=== PATIENT | female | born 1940 | race Two or more races ===

== ENCOUNTER 2017-09-30 18:59 | Inpatient (IN) | payer MEDICARE ==
[~2017-09-30] VITALS: Ht 157.5 cm; Wt 63.5 kg
[2017-09-30 20:00] VITALS: BP 94/62
[2017-09-30 20:21] LABS: BILIRUBIN, URINE 1+ (NEGATIVE); GLUCOSE, URINE (UA) NEGATIVE (NEGATIVE); KETONES,URINE 2+ (NEGATIVE); LEUKOCYTE ESTERASE ,URINE 3+ (NEGATIVE); NITRITE,URINE NEGATIVE (NEGATIVE); PH,URINE 5 (4.5-8.0); PROTEIN,URINE 2+ (NEGATIVE); UROBILINOGEN,URINE NORMAL MG/DL (0.0-1.0)
[2017-09-30 20:23] LABS: APPEARANCE,URINE SLIGHTLY CLOUDY; COLOR,URINE YELLOW
[2017-09-30 20:30] LABS: BASOPHILS % (AUTO) 0.7 % (0.0-2.0); HEMATOCRIT 42.1 % (37.0-47.0); HEMOGLOBIN 13.5 G/DL (12.0-16.0); LYMPHOCYTES % (AUTO) 21.5 % (20.0-45.0); MEAN CORPUSCULAR VOLUME 99 FL (80-99); MONOCYTES % (AUTO) 8.9 % (1.0-10.0); PLATELET COUNT 131 K/UL (150-450); RED BLOOD COUNT 4.24 M/UL (4.20-5.40); RED CELL DISTRIBUTION WIDTH 12.7 % (11.6-14.8); WHITE BLOOD COUNT 6.1 K/UL (4.8-10.8)
[2017-09-30 20:33] LABS: ANION GAP 10 mmol/L (5-15); BLOOD UREA NITROGEN 61 mg/dL (7-18); CALCIUM 8.2 MG/DL (8.5-10.1); CARBON DIOXIDE 25 MMOL/L (21-32); CHLORIDE 105 MMOL/L (98-107); CREATININE 1.9 MG/DL (0.55-1.30); POTASSIUM 4.4 MMOL/L (3.5-5.1); SODIUM 140 MMOL/L (136-145)
[2017-09-30 20:38] LABS: ALANINE AMINOTRANSFERASE 23 U/L (12-78); ALBUMIN 3.5 G/DL (3.4-5.0); ALBUMIN/GLOBULIN RATIO 0.9 (1.0-2.7); ALKALINE PHOSPHATASE 80 U/L (46-116); ASPARTATE AMINO TRANSFERASE 58 U/L (15-37); BILIRUBIN,TOTAL 0.3 MG/DL (0.2-1.0)
[2017-09-30] MEDS ORDERED: cefTRIAXone 1 GM in NS 55 ML IVPB ONE (21:00)
[2017-09-30 21:14] LABS: INR 0.9 (0.9-1.1)
[2017-09-30 22:00] VITALS: BP 101/65
--- NOTE | 2017-09-30 23:20 | Emergency Room Report ---
History of Present Illness General Chief Complaint: Generalized Weakness Source: Patient, EMS Present Illness HPI 77-year-old female resents ED for evaluation. Patient coming from home complaining of weakness bodyaches and chills times one week. Frequent urination. Afebrile in triage. States she has poor appetite. Denies chest pain or shortness of breath. Denies fevers or chills. No other aggravating relieving factors. Denies any other associated symptoms Allergies: Coded Allergies: No Known Allergies (Unverified , 09/30/17) Patient History Past Medical History: HTN Past Surgical History: pacemaker Pertinent Family History: none Social History: Denies: smoking, alcohol use, drug use Now: No Immunizations: UTD Reviewed Nursing Documentation: PMH: Agreed, PSxH: Agreed Nursing Documentation-PMH Hx Hypertension: Yes Hx Pacemaker: Yes Review of Systems All Other Systems: negative except mentioned in HPI Physical Exam Vital Signs Date Time Temp Pulse Resp B/P (MAP) Pulse Ox O2 Delivery O2 Flow Rate FiO2 09/30/17 18:59 98.1 77 16 122/62 97 Room Air Sp02 EP Interpretation: reviewed, normal General Appearance: no apparent distress, alert, GCS 15, non-toxic Head: normocephalic, atraumatic Eyes: bilateral eye normal inspection, bilateral eye PERRL ENT: hearing grossly normal, normal pharynx, no angioedema, normal voice Neck: full range of motion, supple/symm/no masses Respiratory: chest non-tender, lungs clear, normal breath sounds, speaking full sentences Cardiovascular #1: regular rate, rhythm, no edema Cardiovascular #2: 2+ carotid (R), 2+ carotid (L), 2+ radial (R), 2+ radial (L) , 2+ dorsalis pedis (R), 2+ dorsalis pedis (L) Gastrointestinal: normal bowel sounds, non tender, soft, non-distended, no guarding, no rebound Rectal: deferred Genitourinary: normal inspection, no CVA tenderness Musculoskeletal: back normal, gait/station normal, normal range of motion, non- tender Neurologic: alert, oriented x3, responsive, motor strength/tone normal, sensory intact, speech normal Psychiatric: judgement/insight normal, memory normal, mood/affect normal, no suicidal/homicidal ideation Reflexes: 3+ bicep (R), 3+ bicep (L), 3+ tricep (R), 3+ tricep (L), 3+ knee (R) , 3+ knee (L) Skin: normal color, no rash, warm/dry, well hydrated Lymphatic: no adenopathy Medical Decision Making Diagnostic Impression: Primary Impression: UTI (urinary tract infection) Qualified Codes: N39.0 - Urinary tract infection, site not specified Additional Impressions: Renal insufficiency Elevated troponin Episode of generalized weakness ER Course Hospital Course 77-year-old female presenting to ED with generalized weakness, chills Differential diagnoses include: Pneumonia, UTI, sepsis, dehydration, ME/ unstable angina Clinical course Patient placed on stretcher. On front desk monitor with stable vitals are ED course. After initial history and physical, I ordered labs, IV fluids, EKG, chest x-ray, blood cultures, UA. Labs - BUN/Cr elevated, no leukocytosis, troponins 0.158, UA grossly positive for UTI EKG - NSR, no acute ischemic changes interpreted by me CXR - no acute process, pacemaker Abx given. IV fluids given. Given aspirin. Patient denies chest pain Case discussed with Dr Monroy and they agreed to admit patient to their service for further care and support I feel this is a highly complex case requiring extensive working including EKG/ Rhythm strip, Xray/CT/US, Blood/urine lab work, repeat exams while in ED, and administration of strong opiates/narcotics for pain control, admission to hospital or close patient follow up. Diagnosis - UTI, generalized weakness , renal insufficiency, elevated troponin Patient admitted to telemetry in serious condition Labs Test 09/30/17 19:45 White Blood Count 6.1 K/UL (4.8-10.8) Red Blood Count 4.24 M/UL (4.20-5.40) Hemoglobin 13.5 G/DL (12.0-16.0) Hematocrit 42.1 % (37.0-47.0) Mean Corpuscular Volume 99 FL (80-99) Mean Corpuscular Hemoglobin 31.9 PG (27.0-31.0) Mean Corpuscular Hemoglobin Concent 32.1 G/DL (32.0-36.0) Red Cell Distribution Width 12.7 % (11.6-14.8) Platelet Count 131 K/UL (150-450) Mean Platelet Volume 11.0 FL (6.5-10.1) Neutrophils (%) (Auto) 69.0 % (45.0-75.0) Lymphocytes (%) (Auto) 21.5 % (20.0-45.0) Monocytes (%) (Auto) 8.9 % (1.0-10.0) Eosinophils (%) (Auto) 0.0 % (0.0-3.0) Basophils (%) (Auto) 0.7 % (0.0-2.0) Prothrombin Time 9.4 SEC (9.30-11.50) Prothromb Time International Ratio 0.9 (0.9-1.1) Activated Partial Thromboplast Time 25 SEC (23-33) Urine Color Yellow Urine Appearance Slightly cloudy Urine pH 5 (4.5-8.0) Urine Specific Nancy 1.020 (1.005-1.035) Urine Protein 2+ (NEGATIVE) Urine Glucose (UA) Negative (NEGATIVE) Urine Ketones 2+ (NEGATIVE) Urine Occult Blood 2+ (NEGATIVE) Urine Nitrite Negative (NEGATIVE) Urine Bilirubin 1+ (NEGATIVE) Urine Ictotest Negative Urine Urobilinogen Normal MG/DL (0.0-1.0) Urine Leukocyte Esterase 3+ (NEGATIVE) Urine RBC 5-10 /HPF (0 - 2) Urine WBC 20-30 /HPF (0 - 2) Urine Squamous Epithelial Cells Few /LPF (NONE/OCC) Urine Amorphous Sediment Few /LPF (NONE) Urine Bacteria Many /HPF (NONE) Sodium Level 140 MMOL/L (136-145) Potassium Level 4.4 MMOL/L (3.5-5.1) Chloride Level 105 MMOL/L (98-107) Carbon Dioxide Level 25 MMOL/L (21-32) Anion Gap 10 mmol/L (5-15) Blood Urea Nitrogen 61 mg/dL (7-18) Creatinine 1.9 MG/DL (0.55-1.30) Estimat Glomerular Filtration Rate mL/min (>60) Glucose Level 101 MG/DL (74-106) Lactic Acid Level 0.90 mmol/L (0.66-2.22) Calcium Level 8.2 MG/DL (8.5-10.1) Total Bilirubin 0.3 MG/DL (0.2-1.0) Aspartate Amino Transf (AST/SGOT) 58 U/L (15-37) Alanine Aminotransferase (ALT/SGPT) 23 U/L (12-78) Alkaline Phosphatase 80 U/L (46-116) Total Creatine Kinase 886 U/L (26-308) Creatine Kinase MB 2.0 NG/ML (0.0-3.6) Creatine Kinase MB Relative Index 0.2 Troponin I 0.158 ng/mL (0.000-0.056) Total Protein 7.6 G/DL (6.4-8.2) Albumin 3.5 G/DL (3.4-5.0) Globulin 4.1 g/dL Albumin/Globulin Ratio 0.9 (1.0-2.7) Lipase 315 U/L (73-393) EKG Diagnostic Results Rate: normal Rhythm: NSR ST Segments: no acute changes ASA given to the pt in ED: Yes Rhythm Strip Diag. Results EP Interpretation: yes Rhythm: NSR, no PVC's, no ectopy Chest X-Ray Diagnostic Results Chest X-Ray Diagnostic Results : Chest X-Ray Ordered: Yes # of Views/Limited/Complete: 1 View Indication: Other EP Interpretation: Yes Interpretation: no consolidation, no effusion, no pneumothorax, no acute cardiopulmonary disease, other - pacemaker Impression: No acute disease Electronically Signed by: Electronically signed by Bert Johns MD Last Vital Signs Date Time Temp Pulse Resp B/P (MAP) Pulse Ox O2 Delivery O2 Flow Rate FiO2 09/30/17 18:59 98.1 77 16 122/62 97 Room Air Status: improved Disposition: XFER SHT-TRM HOSP Condition: Serious Referrals: NON PHYSICIAN (PCP) BERT JOHNS M.D. Sep 30, 2017 23:20
[2017-09-30 23:30] VITALS: BP 107/51
[2017-10-01] VITALS (7 sets, daily range): BP systolic 103–153; BP diastolic 43–75
[2017-10-01] MEDS: Heparin 5000 units/ml inj SUBQ SCH ×2 (09:00→21:03)
--- NOTE | 2017-10-01 09:04 | History & Physical ---
History and Physical History & Physicial 77-year-old female presents with complaints of weakness, body aches and chills for the past week. she admits to frequent urination and reduced appetite. Denies chest pain or shortness of breath. Denies fevers or chills. No other aggravating relieving factors. Denies any other associated symptoms. Patient noted to have acute renal changes in the ER Allergies: No Known Allergies (Unverified , 09/30/17) Past Medical History: HTN Past Surgical History: pacemaker Pertinent Family History: none Social History: Denies: smoking, alcohol use, drug use Reviewed of systems: as above Physical WDWN NAD clear breath sounds bilaterally without rhonchi or wheeze [id number] without MRG NABS nontender no HSM no CCE nonfocal Labs Test 09/30/17 19:45 White Blood Count 6.1 K/UL (4.8-10.8) Red Blood Count 4.24 M/UL (4.20-5.40) Hemoglobin 13.5 G/DL (12.0-16.0) Hematocrit 42.1 % (37.0-47.0) Mean Corpuscular Volume 99 FL (80-99) Mean Corpuscular Hemoglobin 31.9 PG (27.0-31.0) Mean Corpuscular Hemoglobin Concent 32.1 G/DL (32.0-36.0) Red Cell Distribution Width 12.7 % (11.6-14.8) Platelet Count 131 K/UL (150-450) Mean Platelet Volume 11.0 FL (6.5-10.1) Neutrophils (%) (Auto) 69.0 % (45.0-75.0) Lymphocytes (%) (Auto) 21.5 % (20.0-45.0) Monocytes (%) (Auto) 8.9 % (1.0-10.0) Eosinophils (%) (Auto) 0.0 % (0.0-3.0) Basophils (%) (Auto) 0.7 % (0.0-2.0) Prothrombin Time 9.4 SEC (9.30-11.50) Prothromb Time International Ratio 0.9 (0.9-1.1) Activated Partial Thromboplast Time 25 SEC (23-33) Urine Color Yellow Urine Appearance Slightly cloudy Urine pH 5 (4.5-8.0) Urine Specific [place] 1.020 (1.005-1.035) Urine Protein 2+ (NEGATIVE) Urine Glucose (UA) Negative (NEGATIVE) Urine Ketones 2+ (NEGATIVE) Urine Occult Blood 2+ (NEGATIVE) Urine Nitrite Negative (NEGATIVE) Urine Bilirubin 1+ (NEGATIVE) Urine Ictotest Negative Urine Urobilinogen Normal MG/DL (0.0-1.0) Urine Leukocyte Esterase 3+ (NEGATIVE) Urine RBC 5-10 /HPF (0 - 2) Urine WBC 20-30 /HPF (0 - 2) Urine Squamous Epithelial Cells Few /LPF (NONE/OCC) Urine Amorphous Sediment Few /LPF (NONE) Urine Bacteria Many /HPF (NONE) Sodium Level 140 MMOL/L (136-145) Potassium Level 4.4 MMOL/L (3.5-5.1) Chloride Level 105 MMOL/L (98-107) Carbon Dioxide Level 25 MMOL/L (21-32) Anion Gap 10 mmol/L (5-15) Blood Urea Nitrogen 61 mg/dL (7-18) Creatinine 1.9 MG/DL (0.55-1.30) Estimat Glomerular Filtration Rate mL/min (>60) Glucose Level 101 MG/DL (74-106) Lactic Acid Level 0.90 mmol/L (0.66-2.22) Calcium Level 8.2 MG/DL (8.5-10.1) Total Bilirubin 0.3 MG/DL (0.2-1.0) Aspartate Amino Transf (AST/SGOT) 58 U/L (15-37) Alanine Aminotransferase (ALT/SGPT) 23 U/L (12-78) Alkaline Phosphatase 80 U/L (46-116) Total Creatine Kinase 886 U/L (26-308) Creatine Kinase MB 2.0 NG/ML (0.0-3.6) Creatine Kinase MB Relative Index 0.2 Troponin I 0.158 ng/mL (0.000-0.056) Total Protein 7.6 G/DL (6.4-8.2) Albumin 3.5 G/DL (3.4-5.0) Globulin 4.1 g/dL Albumin/Globulin Ratio 0.9 (1.0-2.7) Lipase 315 U/L (73-393) IMPRESSION elevated troponin ARF possible UTI weakness influenza + PLAN isolate tamiflu hydrate follow up labs and CK check urine culture antibiotics empiric check follow up troponin-likely due to renal impairment impression, plan, and exam edited and reviewed in detail care discussed with DENICE PATTERSON Oct 01, 2017 09:04
[2017-10-01 09:28] LABS: BASOPHILS % (AUTO) 0.5 % (0.0-2.0); EOSINOPHILS % (AUTO) 0.2 % (0.0-3.0); HEMATOCRIT 36.7 % (37.0-47.0); HEMOGLOBIN 12.1 G/DL (12.0-16.0); LYMPHOCYTES % (AUTO) 26.3 % (20.0-45.0); MEAN CORPUSCULAR VOLUME 100 FL (80-99); MONOCYTES % (AUTO) 8.5 % (1.0-10.0); NEUTROPHILS % (AUTO) 64.5 % (45.0-75.0); PLATELET COUNT 118 K/UL (150-450); RED BLOOD COUNT 3.68 M/UL (4.20-5.40); RED CELL DISTRIBUTION WIDTH 12.6 % (11.6-14.8); WHITE BLOOD COUNT 6.2 K/UL (4.8-10.8)
[2017-10-01 09:44] LABS: ANION GAP 8 mmol/L (5-15); BLOOD UREA NITROGEN 41 mg/dL (7-18); CALCIUM 7.2 MG/DL (8.5-10.1); CARBON DIOXIDE 23 MMOL/L (21-32); CHLORIDE 111 MMOL/L (98-107); POTASSIUM 3.7 MMOL/L (3.5-5.1); SODIUM 142 MMOL/L (136-145)
--- NOTE | 2017-10-01 12:43 | Diagnostic Imaging Report ---
Indication: Dyspnea Technique: XRAY Chest 1v Comparison: None Findings: Heart size and mediastinal contours are within normal limits given technique. Atherosclerotic calcifications noted in the aortic arch. Left chest dual-lead pacer noted with lead tips projecting over the expected regions of the right atrium and ventricle. There is no focal consolidation, pneumothorax or pleural effusion. Osseous structures demonstrate no acute abnormality. Impression: No radiographic evidence of acute cardiopulmonary disease.
[2017-10-01] MEDS: Zolpidem 5mg tab ORAL PRN (22:04)
[2017-10-02] VITALS (7 sets, daily range): BP systolic 127–152; BP diastolic 67–83
--- NOTE | 2017-10-02 05:15 | Consultation ---
DATE OF CONSULTATION: 10/01/2017 RENAL CONSULTATION REFERRING PHYSICIAN: Kyle Monroy M.D. REASON FOR CONSULTATION: Elevated BUN and creatinine. HISTORY OF PRESENT ILLNESS: This is a 77-year-old lady with history of hypertension, pacemaker, and Parkinson. The patient was sent because of the weakness, body ache, and chills for a week and the patient also complained that she has frequency of urination and also loss of appetite. Denies any fever or chills. Denies any chest pain, shortness of breath, and N,V. Renal was consulted for the creatinine of 1.4 in the ER. PAST MEDICAL HISTORY: Hypertension, Parkinson disease, GERD, neuropathic pain, status post pacemaker, and status post CVA. PAST SURGICAL HISTORY: None. HOME MEDICATIONS: Aspirin, Lasix, omeprazole, gabapentin, carbidopa, levodopa, and lisinopril. ALLERGIES: No known drug allergies. SOCIAL HISTORY: Denies any smoking or drug use. FAMILY HISTORY: Noncontributory. REVIEW OF SYSTEMS: A 14-point was negative except as in the history of present illness. PHYSICAL EXAMINATION: VITAL SIGNS: Blood pressure of 115/53, heart rate of 68, respiratory rate 18, temperature 98 degrees, and oxygen saturation is 98% on room air. GENERAL: On examination, the patient is not in acute distress. Alert, awake, and oriented x2. HEENT: Atraumatic and normocephalic. NECK: Supple. Trachea is midline. LUNGS: Clear to auscultate bilaterally. No rales. No rhonchi. HEART: S1 and S2 regular rate and rhythm. No murmur, rub, or gallop. ABDOMEN: Soft and nontender. Bowel sounds present. EXTREMITIES: No edema. LABORATORY AND DIAGNOSTIC DATA: White count 6.2, hemoglobin 12.1, hematocrit 36.7, and platelet count is 118,000. Sodium of 142, potassium 3.7, chloride 111, bicarbonate 23, BUN 41, and creatinine from 1.9 to 1.0 with IV fluids. Glucose is 111. Calcium 7.2. Lactic acid level is 0.9. CK is 886 and troponin is 0.158. The lipase is 315. INR 0.9. UA shows a specific gravity of 1.020, 2+ protein, 2+ blood, negative 2+ leukocyte esterase, 20 to 30 WBCs, 5 to 10 RBCs, and many bacteria. Urine culture showed gram-negative bacillus and influenza A and B. The patient is positive for the influenza A. ASSESSMENT AND PLAN: 1. Acute kidney injury, which is resolved with IV fluids. 2. Influenza A. 3. Gram-negative urinary tract infection. 4. History of cerebrovascular accident. 5. Status post pacemaker. 6. Parkinson disease. 7. Thrombocytopenia. 8. Elevated troponin trend. 9. Continue current management and need the medication for the influenza A and also follow up the urine sensitivity and continue IV fluids with normal saline at 100 mL per hour and monitor I/O and electrolytes. Thank you for the consultation and we will followup. Josefa Segundo M.D. DR: Fady JOB#: [id number] CC: CASTRO
[2017-10-02 06:07] LABS: ANION GAP 10 mmol/L (5-15); BLOOD UREA NITROGEN 23 mg/dL (7-18); CALCIUM 7.6 MG/DL (8.5-10.1); CARBON DIOXIDE 24 MMOL/L (21-32); CHLORIDE 112 MMOL/L (98-107); CREATININE 0.9 MG/DL (0.55-1.30); POTASSIUM 4.4 MMOL/L (3.5-5.1); SODIUM 145 MMOL/L (136-145)
--- NOTE | 2017-10-02 08:37 | General Progress Note ---
Assessment/Plan Assessment/Plan IMPRESSION elevated troponin ARF possible UTI weakness influenza + PLAN isolate tamiflu hydrate follow up labs and CK check urine culture antibiotics empiric monitor renal function cards evaluation check follow up troponin-likely due to renal impairment impression, plan, and exam edited and reviewed in detail care discussed with RN Subjective Allergies: Coded Allergies: No Known Allergies (Unverified , 09/30/17) Subjective care noted better no CP Objective Last 24 Hour Vital Signs Date Time Temp Pulse Resp B/P (MAP) Pulse Ox O2 Delivery O2 Flow Rate FiO2 10/02/17 08:00 96.6 64 20 127/77 98 Room Air 10/02/17 04:00 98.1 68 21 152/81 94 Room Air 10/02/17 04:00 63 10/02/17 00:00 97.7 67 21 142/67 95 Room Air 10/02/17 00:00 72 10/01/17 20:00 73 10/01/17 20:00 97.5 78 19 153/75 97 Room Air 10/01/17 16:00 98.5 73 18 145/50 97 Room Air 10/01/17 15:11 75 10/01/17 12:00 72 10/01/17 12:00 98.5 72 18 126/64 97 Room Air Intake and Output 10/01/17 10/02/17 19:00 07:00 Intake Total 1300 ml 440 ml Output Total 350 ml Balance 950 ml 440 ml Intake Oral 500 ml 240 ml IV Total 800 ml 200 ml Output Urine Total 350 ml # Voids 2 5 Laboratory Tests 10/02/17 03:45: Sodium Level 145, Potassium Level 4.4, Chloride Level 112H, Carbon Dioxide Level 24, Anion Gap 10, Blood Urea Nitrogen 23H, Creatinine 0.9, Estimat Glomerular Filtration Rate , Glucose Level 71L, Calcium Level 7.6L, Troponin I 0.195H Height (Feet): 5 Height (Inches): 2.00 Weight (Pounds): 140 Objective WDWN NAD clear breath sounds bilaterally without rhonchi or wheeze [id number] without MRG NABS nontender no HSM no CCE nonfocal DENICE VALENTIN Oct 02, 2017 08:37
[2017-10-02] MEDS: Heparin 5000 units/ml inj SUBQ SCH ×2 (09:00→22:21)
[2017-10-02] MEDS: cefTRIAXone 1gm/D5W 55ml IVPB SCH ×2 (17:31)
[2017-10-03] MEDS: Zolpidem 5mg tab ORAL PRN (02:12)
[2017-10-03 03:41] VITALS: BP 106/66
[2017-10-03 08:00] VITALS: BP 118/84
--- NOTE | 2017-10-03 08:47 | General Progress Note ---
Assessment/Plan Assessment/Plan IMPRESSION elevated troponin ARF UTI weakness influenza + PLAN isolate tamiflu hydrate follow up labs and CK- today may change to po antibiotics on dc monitor renal function cards evaluation called and await eval dc planning impression, plan, and exam edited and reviewed in detail care discussed with RN Subjective Allergies: Coded Allergies: No Known Allergies (Unverified , 09/30/17) Subjective care noted better no CP or distress Objective Last 24 Hour Vital Signs Date Time Temp Pulse Resp B/P (MAP) Pulse Ox O2 Delivery O2 Flow Rate FiO2 10/03/17 08:00 97.1 114 18 118/84 99 Room Air 10/03/17 04:00 103 10/03/17 03:41 98.2 105 20 106/66 93 Room Air 103 10/03/17 02:25 98.2 10/03/17 00:00 89 10/02/17 23:33 98.2 88 19 140/75 96 Room Air 88 10/02/17 20:04 98.2 82 20 145/81 95 Room Air 82 10/02/17 20:00 77 10/02/17 16:00 96.8 75 18 140/81 98 Room Air 10/02/17 16:00 68 10/02/17 12:00 64 10/02/17 11:29 97.5 72 18 141/83 97 Room Air Intake and Output 10/02/17 10/03/17 19:00 07:00 Intake Total 1395 ml 1740 ml Output Total 950 ml 700 ml Balance 445 ml 1040 ml Intake Oral 240 ml 640 ml IV Total 1155 ml 1100 ml Output Urine Total 950 ml 700 ml # Voids 3 # Bowel Movements 1 Height (Feet): 5 Height (Inches): 2.00 Weight (Pounds): 140 Objective WDWN NAD clear breath sounds bilaterally without rhonchi or wheeze [id number] without MRG NABS nontender no HSM no CCE nonfocal DENICE VALENTIN Oct 03, 2017 08:47
[2017-10-03] MEDS: Heparin 5000 units/ml inj SUBQ SCH ×2 (08:53→21:40)
[2017-10-03 12:00] VITALS: BP 127/69
--- NOTE | 2017-10-03 14:01 | Wound Care Consultation ---
Wound Assessment Wound Assessment : Wound Number: 1 Wound Present on Admission: No New Wound: Yes Status Change of Wound: No Wound Location Body Site Modif: left Wound Location Body Site: heel Wound Type: pressure ulcer David Test: Does not David Pressure Ulcer Stage: II - fluid filled blister Wound Thickness: Partial Thickness Wound Length: 3.0 Wound Width: 3.5 Percent of Wound [place]/Red: 100 Wound Drainage Amount: None Wound Drainage Odor: None/Absent Tissue Surrounding Wound: Erythemic Wound General Appearance: Reddened Wound Comment #1 Fluid filled intact blister stage II pressure ulcer on left heel Recommendation -Local wound care per protocol -Keep clean and dry -Offload both heels -Keep clean and dry -Optimize nutrition -Heel protector on both heels -Low air loss SPR mattress -Assess and f/u accordingly for any changes CANDIS GARCIA RN Oct 03, 2017 14:01
[2017-10-03 15:55] VITALS: BP 140/86
[2017-10-03] MEDS: cefTRIAXone 1gm/D5W 55ml IVPB SCH ×2 (17:29)
[2017-10-03 20:00] VITALS: BP_SYST 140; BP_SYST 152; BP_DIAS 69; BP_DIAS 80
[2017-10-03] MEDS ORDERED: Lexiscan 0.4mg/5ml syringe IV ONE (23:00)
[2017-10-04] VITALS: BP 128/52
[2017-10-04 04:00] VITALS: BP 139/70
[2017-10-04 06:53] LABS: CKMB 1.3 NG/ML (0.0-3.6)
--- NOTE | 2017-10-04 07:25 | General Progress Note ---
Assessment/Plan Assessment/Plan IMPRESSION elevated troponin ARF UTI weakness influenza + PLAN isolate tamiflu hydrate stress test and cards clearance may change to po antibiotics on dc monitor renal function dc planning pending labs and stress results impression, plan, and exam edited and reviewed in detail care discussed with RN Subjective Allergies: Coded Allergies: No Known Allergies (Unverified , 09/30/17) Subjective care noted better no CP or distress troponin noted for stress today Objective Last 24 Hour Vital Signs Date Time Temp Pulse Resp B/P (MAP) Pulse Ox O2 Delivery O2 Flow Rate FiO2 10/04/17 04:00 97.9 72 18 139/70 94 Room Air 10/04/17 04:00 63 10/04/17 00:00 98.0 87 20 128/52 90 Room Air 10/04/17 00:00 76 10/03/17 20:00 75 10/03/17 20:00 97.9 75 20 140/80 93 Nasal Cannula 10/03/17 16:00 69 10/03/17 15:55 97.9 75 20 140/86 95 Room Air 10/03/17 12:00 62 10/03/17 12:00 96.8 72 18 127/69 98 Room Air 10/03/17 08:00 58 10/03/17 08:00 97.1 114 18 118/84 99 Room Air Intake and Output 10/03/17 10/04/17 19:00 07:00 Intake Total 1175 ml 1033 ml Output Total 1000 ml Balance 175 ml 1033 ml Intake Oral 120 ml IV Total 1055 ml 1033 ml Output Urine Total 1000 ml # Voids 6 # Bowel Movements 1 1 Laboratory Tests 10/04/17 04:30: Total Creatine Kinase 157, Creatine Kinase MB 1.3, Creatine Kinase MB Relative Index 0.8, Troponin I 0.258H Height (Feet): 5 Height (Inches): 2.00 Weight (Pounds): 140 Objective WDWN NAD clear breath sounds bilaterally without rhonchi or wheeze [id number] without MRG NABS nontender no HSM no CCE nonfocal DENICE VALENTIN Oct 04, 2017 07:25
[2017-10-04 08:00] VITALS: BP 117/57
--- NOTE | 2017-10-04 08:38 | Diagnostic Imaging Report ---
Indication: Pain and difficulty with urination Technique: Grayscale and duplex images of the kidneys, retroperitoneum, and bladder were obtained. Comparison: none Findings: Right kidney measures 9.8 cm in length. Left kidney measures 9.6 cm in length. Both kidneys demonstrate normal echogenicity. No hydronephrosis. No focal abnormality. Normal inferior vena cava. Bladder is normal. Impression: negative.
[2017-10-04] MEDS: Heparin 5000 units/ml inj SUBQ SCH ×2 (09:00→21:00)
[2017-10-04 12:00] VITALS: BP 124/74
[2017-10-04 16:00] VITALS: BP 136/58
--- NOTE | 2017-10-04 17:04 | Diagnostic Imaging Report ---
Indications: Chest pain Technique: Single day single isotope protocol utilized. Initially, resting images obtained using IV administration 10 millicuries 99M technetium Myoview. Subsequently, patient underwent lexiscan stress testing. See cardiology report for details. During Lexiscan infusion, IV administration 30.7 mCi 99 M technetium Myoview. SPECT and planar images obtained. SPECT images gated to 8 phases of the cardiac cycle were also obtained, and reformatted into cine images for evaluation of ejection fraction. Comparison: none Findings: Per cardiology report, patient experienced no chest pain. Per cardiology report, resting EKG demonstrates normal sinus rhythm with bifascicular block. No significant ST-T wave changes noted during infusion. Imaging, no definite fixed nor reversible perfusion defects are demonstrated. What is probably soft tissue attenuation artifact is seen in the inferolateral wall on stress and resting images. Normal cardiac chamber size. Calculated post stress ejection fraction 88%. No focal wall motion abnormality Impression: Nonischemic clinical response to pharmacologic stress, per cardiology report Nonischemic electrocardiographic response to pharmacologic stress, per cardiology report No imaging findings to suggest ischemia, at level of stress achieved. Calculated post stress ejection fraction greater than 70%
[2017-10-04] MEDS: cefTRIAXone 1gm/D5W 55ml IVPB SCH ×2 (17:35)
--- NOTE | 2017-10-04 19:27 | Cardiology Report ---
APPROVED REPORT EKG Measurement Heart [id number] Normal sinus rhythm Right bundle branch block Left anterior fascicular block Bifascicular block Abnormal ECG
[2017-10-04 20:00] VITALS: BP 130/58
[2017-10-05] VITALS: BP 138/97
[2017-10-05 04:00] VITALS: BP 128/86
[2017-10-05 08:00] VITALS: BP 123/79
[2017-10-05] MEDS: Heparin 5000 units/ml inj SUBQ SCH ×2 (09:04→21:00)
--- NOTE | 2017-10-05 10:15 | Progress Note ---
DATE: 10/04/2017 CARDIOLOGY PROGRESS NOTE SUBJECTIVE: The patient is without chest pain or shortness of breath. She had a Lexiscan stress test today. Results revealed normal ejection fraction, normal perfusion, and no evidence of flow-limiting coronary artery disease. OBJECTIVE: VITAL SIGNS: Blood pressure is 139/70, pulse 72, respiratory rate 18, and afebrile. NECK: Supple. LUNGS: Clear. CARDIAC: Regular. Normal S1, S2. ABDOMEN: Soft. EXTREMITIES: No edema. LABORATORY DATA: Reviewed. IMPRESSION: 1. Troponin leak. No signs of acute myocardial infarction or flow-limiting coronary artery disease. 2. Acute renal failure, improved. 3. Urinary tract infection, recovering. 4. Influenza. 5. Respiratory infection, on Tamiflu. PLAN: 1. Continue hydration. 2. Antiviral therapy. 3. Long-term anti-platelet drugs. 4. No additional cardiovascular studies planned. Carlos Alberto Lopez M.D. DR: Nishi JOB#: [id number] CC:
--- NOTE | 2017-10-05 10:43 | General Progress Note ---
Assessment/Plan Assessment/Plan IMPRESSION elevated troponin ARF UTI weakness influenza + UTI PLAN dc today tamiflu and cipro on dc impression, plan, and exam edited and reviewed in detail care discussed with RN Subjective Allergies: Coded Allergies: No Known Allergies (Unverified , 09/30/17) Subjective care noted better stress test negative Objective Last 24 Hour Vital Signs Date Time Temp Pulse Resp B/P (MAP) Pulse Ox O2 Delivery O2 Flow Rate FiO2 10/05/17 04:00 97.0 71 18 128/86 98 10/05/17 04:00 50 10/05/17 00:00 97.2 64 18 138/97 98 10/05/17 00:00 90 10/04/17 20:00 97.9 75 18 130/58 97 10/04/17 20:00 90 10/04/17 16:00 97.8 76 18 136/58 94 Room Air 10/04/17 16:00 92 10/04/17 12:00 97.7 73 19 124/74 94 Room Air 10/04/17 12:00 76 Intake and Output 10/04/17 10/05/17 19:00 07:00 Intake Total 236 ml 236 ml Output Total 500 ml Balance 236 ml -264 ml Intake Oral 236 ml 236 ml Output Urine Total 500 ml # Voids 3 2 # Bowel Movements 1 Height (Feet): 5 Height (Inches): 2.00 Weight (Pounds): 140 Objective WDWN NAD clear breath sounds bilaterally without rhonchi or wheeze [id number] without MRG NABS nontender no HSM no CCE nonfocal DENICE VALENTIN Oct 05, 2017 10:43
[2017-10-05 12:00] VITALS: BP 135/92
--- NOTE | 2017-10-05 13:11 | Diagnostic Imaging Report ---
APPROVED REPORT CPT Code: 38498 Present Symptoms Lower Extremity Pain: Bilateral BILATERAL: Imaging reveals a patent deep venous system bilaterally. There is no evidence of thrombus within the femoral, popliteal or tibial segments. The greater saphenous veins are also within normal limits. Doppler indicates normal spontaneous flow within these segments.
[2017-10-05 16:00] VITALS: BP 127/71
[2017-10-05] MEDS: cefTRIAXone 1gm/D5W 55ml IVPB SCH ×2 (17:32)
[2017-10-05 20:00] VITALS: BP 133/69
[2017-10-06] VITALS: BP 130/100
--- NOTE | 2017-10-06 01:45 | Progress Note ---
DATE: 10/03/2017 CARDIOLOGY PROGRESS NOTE Late entry for 10/03/2017. SUBJECTIVE: The patient remains on antiviral therapy and empiric antibiotics. She continues to have cough and congestion, but no shortness of breath. She has positive influenza A probe. OBJECTIVE: LUNGS: Good breath sounds. Scattered rhonchi. HEART: Regular rhythm and rate. Normal S1, S2. Monitored sinus and sinus tachycardia. ABDOMEN: Soft. EXTREMITIES: No edema. DIAGNOSTIC DATA: Venous duplex scan is negative yesterday for DVT. IMPRESSION: 1. Influenza A infection. 2. Acute myocardial ischemia and possible [id number]-JA-[id number] infarction. 3. Acute renal failure, recovering. 4. Urinary tract infection. PLAN: 1. Hydration. 2. Antimicrobials. 3. Anti-platelet therapy. 4. Repeat troponin and CK-MB fraction. 5. DVT prophylaxis. 6. Stress test once respiratory parameters have stabilized. Carlos Alberto Lopez M.D. DR: Jennifer JOB#: [id number] CC:
--- NOTE | 2017-10-06 01:45 | Consultation ---
DATE OF CONSULTATION: 10/02/2017 CARDIOLOGY CONSULTATION CONSULTING PHYSICIAN: Carlos Alberto Lopez M.D. REQUESTING PHYSICIAN: Kyle Monroy M.D. REASON FOR CONSULTATION: Elevated troponin level. HISTORY OF PRESENT ILLNESS: This is a 77-year-old female. She has a week long history of body aches, chills, and some tactile fevers. She also has had frequency and dysuria with anorexia. She denies chest pain or shortness of breath. The patient was noted to have a positive influenza probe on admission as well as an abnormal troponin level. PAST MEDICAL HISTORY: Permanent pacemaker, hypertension, Parkinson disease, gastroesophageal reflux disease with neuropathy, and cerebrovascular disease with history of CVA. MEDICATIONS: Reviewed and reconciled. ALLERGIES: None known. FAMILY HISTORY: Noncontributory. SOCIAL HISTORY: Negative for smoking, alcohol, or substance abuse. REVIEW OF SYSTEMS: A 10-point review of systems performed. All systems negative other than noted above. PHYSICAL EXAMINATION: GENERAL: Moderate respiratory distress. VITAL SIGNS: Blood pressure 142/67, heart rate 67, respiratory rate 21, oxygen saturation 95% on room air, and afebrile. HEENT: Conjunctivae pink. Oropharynx clear. Positive rhinorrhea. No thrush. NECK: Supple. No adenopathy. No accessory muscle use. LUNGS: With coarse breath sounds and rhonchi. CARDIAC: Regular rhythm and rate. Normal S1 and S2. ABDOMEN: Soft and nontender. EXTREMITIES: Trace edema. DIAGNOSTIC DATA: EKG reveals sinus rhythm and bifascicular block. No acute ST abnormalities. Troponin 0.148. Chest x-ray reveals dual chamber pacemaker with no acute process. IMPRESSION: 1. Influenza A upper respiratory infection. 2. Troponin leak suggesting acute myocardial ischemia and possibly infarction, uug-[place]-pftjmyeys type. 3. Acute renal failure. 4. Hypovolemia and dehydration. 5. Type 2 diabetes mellitus with neuropathy. 6. Permanent pacemaker. PLAN: 1. Hydration. 2. Hold PAULY inhibitor. 3. Continue antiplatelet therapy. 4. Monitor cardiorenal parameters. 5. Antiviral therapy. 6. Noninvasive assessment of coronary flow reserve will be considered once infectious disease and pulmonary parameters are stabilized. 7. Pacemaker interrogation will be performed as an outpatient or sooner if data on her pacemaker type is obtained. Carlos Alberto Tim Lopez DR: Jennifer JOB#: [id number] CC:
--- NOTE | 2017-10-06 01:45 | Progress Note ---
DATE: 10/05/2017 CARDIOLOGY PROGRESS NOTE SUBJECTIVE: Stress test yesterday was negative for flow-limiting coronary disease. The patient with less congestion. No chest pain. OBJECTIVE: VITAL SIGNS: Blood pressure 133/69, heart rate 74, respiratory rate 20, and afebrile. Monitor sinus and sinus bradycardia. LUNGS: Few rhonchi. CARDIAC: Regular rhythm and rate. Normal S1 and S2. ABDOMEN: Soft. EXTREMITIES: No edema. IMPRESSION: 1. Influenza A infection. 2. Acute myocardial ischemia. 3. Permanent pacemaker. 4. Hypertension. 5. Type 2 diabetes mellitus with neuropathy. 6. Urinary tract infection. 7. Recovering acute renal failure. PLAN: 1. Taper off hydration. 2. Continue antiplatelet therapy. 3. Complete antiviral regimen. 4. Resume angiotensin-converting enzyme inhibitor therapy. 5. Pacemaker interrogation as an outpatient. Carlos Alberto Lopez M.D. DR: Jennifer JOB#: [id number] CC:
[2017-10-06 04:00] VITALS: BP 137/69
[2017-10-06 08:00] VITALS: BP 139/72
--- NOTE | 2017-10-06 08:21 | General Progress Note ---
Assessment/Plan Assessment/Plan IMPRESSION elevated troponin ARF UTI weakness influenza + UTI PLAN dc today pending safe discharge tamiflu and cipro - may dc today (treated for 5 days) impression, plan, and exam edited and reviewed in detail care discussed with RN Subjective Allergies: Coded Allergies: No Known Allergies (Unverified , 09/30/17) Subjective care noted better stress test negative unable to locate family Objective Last 24 Hour Vital Signs Date Time Temp Pulse Resp B/P (MAP) Pulse Ox O2 Delivery O2 Flow Rate FiO2 10/06/17 04:00 98.1 78 18 137/69 98 10/06/17 04:00 75 10/06/17 00:00 82 10/06/17 00:00 97.3 76 20 130/100 100 10/05/17 20:00 97.7 74 20 133/69 96 10/05/17 20:00 83 10/05/17 18:26 97.6 10/05/17 16:00 97.9 58 20 127/71 97 10/05/17 16:00 61 10/05/17 12:00 97.8 75 19 135/92 97 10/05/17 12:00 76 Intake and Output 10/05/17 10/06/17 19:00 07:00 Intake Total 1356 ml Output Total 100 ml 400 ml Balance 1256 ml -400 ml Intake Oral 356 ml IV Total 1000 ml Output Urine Total 100 ml 400 ml # Voids 1 # Bowel Movements 1 Height (Feet): 5 Height (Inches): 2.00 Weight (Pounds): 140 Objective WDWN NAD clear breath sounds bilaterally without rhonchi or wheeze [id number] without MRG NABS nontender no HSM no CCE nonfocal significant tremor DENICE VALENTIN Oct 06, 2017 08:21
[2017-10-06] MEDS ORDERED: Lisinopril 10mg tab ORAL SCH (09:00)
[2017-10-06] MEDS ORDERED: Aspirin Baby 81mg ORAL SCH (09:00)
[2017-10-06] MEDS: Heparin 5000 units/ml inj SUBQ SCH (09:45)
[2017-10-06 12:00] VITALS: BP 138/51
[2017-10-06] MEDS ORDERED: NS 500ML ONE (14:24)
--- NOTE | 2017-10-08 01:30 | Progress Note ---
DATE: 10/06/2017 CARDIOLOGY PROGRESS NOTE SUBJECTIVE: The patient is seen and evaluated. No chest pain or shortness of breath. Congestion has diminished. OBJECTIVE: VITAL SIGNS: Blood pressure parameters are labile ranging from 127/71 to 130/100. Monitored sinus rhythm with atrial ectopy. Heart rates in the 70s. LUNGS: Clear. CARDIAC: Regular. ABDOMEN: Soft. EXTREMITIES: No edema. LABORATORY TEST: Stress test was negative for flow-limiting coronary artery disease. IMPRESSION: 1. Acute myocardial ischemia with non flow-limiting coronary artery disease. 2. Acute renal failure, resolved. 3. Influenza. 4. Upper respiratory infection. 5. Urinary tract infection. 6. Permanent pacemaker. PLAN: 1. Now stable for outpatient management. 2. Cardiovascular regimen discussed and should include antiplatelet therapy with aspirin and angiotensin converting enzyme inhibitor. 3. We will arrange outpatient pacemaker interrogation. Carlos Alberto Lopez M.D. DR: ELIN JOB#: [id number] CC:
--- NOTE | 2017-10-09 08:29 | Discharge Summary ---
Discharge Summary Hospital Course Date of Admission Sep 30, 2017 at 23:43 Date of Discharge Oct 06, 2017 at 14:25 Admitting Diagnosis WEAKNESS HPI Flor Becerra is a 77 year old female who was admitted on Sep 30, 2017 at 23: 43 for Weakness Hospital Course dc summary #[id number] Discharge Condition Upon Discharge: stable Discharge Disposition Patient was discharged home with home health services Discharge Diagnoses: Discharge Instructions Discharge Instructions Special Instructions I have been assigned to complete a D/C Summary on this account. I was not involved in the patient management Tricia Solis NP (Vanchtein) Oct 09, 2017 08:29
--- NOTE | 2017-10-09 21:15 | Discharge Summary 2 SIG ---
DATE OF ADMISSION: 09/30/2017 DATE OF DISCHARGE: 10/06/2017 REASON FOR ADMISSION: 77-year-old female with history of hypertension and pacemaker presented to the emergency department with complaint of generalized body aches and urinary frequency. The patient reported chills for one week. She denied chest pain, shortness of breath. Reported poor appetite. Workup in the emergency room revealed stable vital signs. No fever. Laboratory workup showed elevated troponin -0.158. EKG showed normal sinus rhythm. No acute ischemic changes. Urinalysis was grossly positive for urinary tract infection. Elevated BUN and creatinine. Noted with BUN - 61 and creatinine -1.9. Lactic acid within normal limits. Chest x-ray revealed no acute cardiopulmonary pathology. Influenza test was positive for influenza type A. The patient was admitted with the elevated troponin, possible urinary tract infection, influenza type A and acute renal failure. HOSPITAL COURSE: The patient admitted. Cardiology and renal consults were requested. The patient was started on the hydration. The patient started on empiric antibiotics. Cardiac workup initiated. Echocardiogram revealed preserved ejection fraction of 60% to 65%, right ventricular systolic pressure of 29. Subsequently the patient undergone stress test, which was negative for flow-limiting coronary disease. The patient was on Tamiflu for influenza. Repeat influenza test was negative. The patient was hydrated. Shearing Machine Operator seen and evaluated the patient. Acute renal failure was likely due to dehydration, resolved. PALUY was on hold while the patient was in renal failure. BUN down to 23, creatinine down to 0.9. Serial troponin were followed. Antiplatelet therapy started. Cardiorenal parameters and volume status were closely monitored. Pacemaker interrogation to be done as outpatient. Urine culture came back with Klebsiella. Antibiotic regimen was optimized based on sensitivity. The patient status post treatment with antibiotics for five days. DVT and GI prophylaxis provided. The patient was stable for discharge. FINAL DIAGNOSES: 1. Influenza type A. 2. Urinary tract infection with Klebsiella. 3. Acute renal failure, resolved ( due to dehydration) 4. Dehydration. 5. Acute myocardial ischemia with non-flow limiting coronary artery disease. 6. Permanent pacemaker. DISCHARGE MEDICATIONS: List of discharge medication was given to patient. DISCHARGE INSTRUCTIONS: The patient was discharged home with home health services. The pacemaker interrogation as outpatient. Followup with the primary medical doctor next week. Kyle Monroy M.D. I have been assigned to dictate discharge summary on this account and I was not involved in the patient's management. Tricia Clancyconchita NAshkanPAshkan DR: Desi JOB#: [id number] CC: CASTRO
--- NOTE | 2017-10-16 11:05 | Cardiology Report ---
APPROVED REPORT EXAM: Two-dimensional and M-mode echocardiogram with Doppler and color Doppler. INDICATION Acute MO M-Mode DIMENSIONS IVSd1.7 (0.7-1.1cm)Left Atrium (MM)2.9 (1.6-4.0cm) LVDd3.6 (3.5-5.6cm)Aortic Root3.1 (2.0-3.7cm) PWd1.2 (0.7-1.1cm)Aortic Cusp Exc.1.9 (1.5-2.0cm) IVSs2.4 cm LVDs2.4 (2.5-4.0cm) PWs1.4 cm Technically difficult study due to poor parasternal acoustical windows. Normal left ventricular chamber size, systolic function and wall motion to extent visualized. Left ventricular ejection fraction estimated to be 60-65%. No evidence of left ventricular hypertrophy. No evidence of pericardial effusion. All other cardiac chamber sizes are within normal limits. Focal aortic valve sclerosis with adequate cusp excursion. Thickened mitral valve leaflets with normal excursion. Mitral annulus and aortic root calcification. Pulmonic valve not well visualized. Normal tricuspid valve structure. IVC at normal size with physiologic collapse. A color flow and spectral Doppler study was performed and revealed: No aortic regurgitation. Trace mitral regurgitation. Mitral diastolic velocities suggest reduced left ventricular relaxation c/w mild LV diastolic dysfunction (Grade I ). Mild tricuspid regurgitation. Tricuspid systolic velocities suggests peak right ventricular systolic pressure of 29 mmHg No Pulmonic regurgitation present.
== END 2017-10-06 14:25 | disposition home health service (06) | DRG 194 ==
LOC: EDBD 18:59 → EMR 21:20 → 2W 23:43 → EDBEDREQSVC 23:54 → EDBEDREQTM 23:54 → EDBEDREQ 23:54 → 2E 10-02 07:00
DX: J10.1 Influenza due to other identified influenza virus with other respiratory manifestations (principal); N17.9 Acute kidney failure, unspecified; D69.6 Thrombocytopenia, unspecified; E11.40 Type 2 diabetes mellitus with diabetic neuropathy, unspecified; E86.0 Dehydration; I51.3 Intracardiac thrombosis, not elsewhere classified; N39.0 Urinary tract infection, site not specified; B96.1 Klebsiella pneumoniae [K. pneumoniae] as the cause of diseases classified elsewhere; I10 Essential (primary) hypertension; K21.9 Gastro-esophageal reflux disease without esophagitis; R63.0 Anorexia; Z68.25 Body mass index [BMI] 25.0-25.9, adult; Z86.73 Personal history of transient ischemic attack (TIA), and cerebral infarction without residual deficits; Z95.0 Presence of cardiac pacemaker
CPT/HCPCS: 36415; 71010; 76775; 78452; 80048; 80053; 81003; 82550; 82553; 83605; 83690; 84484; 85025; 85610; 85730; 86710; 87040; 87086; 87181; 93005; 93017; 93306; 93970; 99285; J2785